=== PATIENT | female | born 1970 | race Hispanic/Latino ===

== ENCOUNTER 2018-05-21 19:37 | Emergency (ER) | payer SELFPAY ==
[~2018-05-21] VITALS: Ht 177.8 cm; Wt 93.0 kg
[2018-05-21 21:07] VITALS: BP 128/69
== END 2018-05-21 21:07 | disposition home or self-care (01) | DRG 563 ==
LOC: ED 19:37
DX: S93.402A Sprain of unspecified ligament of left ankle, initial encounter (principal); W10.9XXA Fall (on) (from) unspecified stairs and steps, initial encounter; Y92.009 Unspecified place in unspecified non-institutional (private) residence as the place of occurrence of the external cause

== ENCOUNTER 2018-10-21 06:54 | Emergency (ER) | payer OTHER ==
[~2018-10-21] VITALS: Ht 177.8 cm; Wt 102.0 kg
[2018-10-21 07:20] LABS: URINE BILIRUBIN - DIPSTICK NEGATIVE (NEGATIVE); URINE BLOOD DIPSTICK NEGATIVE (NEGATIVE); URINE COLOR YELLOW; URINE GLUCOSE - DIPSTICK NEGATIVE (NEGATIVE); URINE KETONE NEGATIVE (NEGATIVE); URINE LEUK ESTERASE NEGATIVE (NEGATIVE); URINE NITRITE - DIPSTICK NEGATIVE (Negative); URINE PH 5.5 (4.5-8.0); URINE PROTEIN - DIPSTICK NEGATIVE (NEG-TRACE); URINE UROBILINOGEN - DIPSTICK 0.2 E.U./dL (0.2)
[2018-10-21] MEDS ORDERED: NAPROXEN500 MG PO (08:28)
[2018-10-21 08:44] VITALS: BP 120/76
== END 2018-10-21 08:50 | disposition home or self-care (01) | DRG 552 ==
LOC: ED 06:54
PROVIDERS: Emergency Medicine
DX: S13.9XXA Sprain of joints and ligaments of unspecified parts of neck, initial encounter (principal); S33.5XXA Sprain of ligaments of lumbar spine, initial encounter; V40.5XXA Car driver injured in collision with pedestrian or animal in traffic accident, initial encounter

== ENCOUNTER 2019-01-03 17:26 | Emergency (ER) | payer OTHER ==
[~2019-01-03] VITALS: Ht 177.8 cm; Wt 90.0 kg
[~2019-01-03 17:26] MED LIST: NAPROXEN500 MG PO
[2019-01-03 18:47] LABS: HEMATOCRIT 33.3 % (37.0-47.0); HEMOGLOBIN 10.3 g/dl (12.0-16.0); IMMATURE GRANULOCYTES 0.4 % (0.0-5.0); MEAN CORPUSCULAR HGB 20.7 pG CALC (26.0-32.0); MEAN CORPUSCULAR HGB CONC 30.9 g/L CALC (32.0-36.0); NEUT# 7.01 thou/uL (2.00-7.15); RED BLOOD COUNT 4.97 mill/uL (4.20-5.60); RED CELL DISTRI WIDTH 14.9 % (11.5-15.5)
[2019-01-03 18:59] LABS: ALBUMIN 4.2 g/dL (3.2-5.0); ALKALINE PHOSPHATASE 78 u/l (38-126); ANION GAP 15 (6-22 (CALC)); BILIRUBIN, TOTAL 0.7 mg/dL (0.0-1.4); BUN 10 mg/dL (7-17); BUN/CREATININE RATIO 17 (12-20 (CALC)); CARBON DIOXIDE 25 mmol/l (22-30); CHLORIDE 99 mmol/l (95-108); CREATININE 0.6 mg/dL (0.5-1.0); GFR > 60 ML/MIN (>=60 (CALC)); GFR FOR AFR.AMER. > 60 ML/MIN (>=60 (CALC)); POTASSIUM 3.9 mmol/l (3.5-5.1); SGOT/AST 33 u/l (14-36); SODIUM 135 mmol/l (137-146); TOTAL PROTEIN 8.2 g/dL (6.3-8.2)
[2019-01-03 19:34] VITALS: BP 130/85
[2019-01-03] MEDS ORDERED: FLEXERIL5 M1 PO (20:33)
[2019-01-03] MEDS ORDERED: ZOFRAN4 MG/TAB PO (20:33)
[2019-01-03] MEDS ORDERED: ANTIVERT PO (20:33)
[2019-01-03] MEDS ORDERED: FIORICET PO (20:33)
== END 2019-01-03 20:45 | disposition home or self-care (01) | DRG 149 ==
LOC: ED 17:26
DX: R42 Dizziness and giddiness (principal); R51 Headache; R11.2 Nausea with vomiting, unspecified

== ENCOUNTER 2019-12-18 18:31 | Emergency (ER) | payer SELFPAY ==
[~2019-12-18] VITALS: Ht 167.6 cm; Wt 89.0 kg
[~2019-12-18 18:31] MED LIST changes: +ANTIVERT PO; +FIORICET PO; +FLEXERIL5 M1 PO; +ZOFRAN4 MG/TAB PO
[2019-12-18 20:35] LABS: HEMATOCRIT 36.9 % (37.0-47.0); HEMOGLOBIN 11.6 g/dl (12.0-16.0); IMMATURE GRANULOCYTES 0.2 % (0.0-5.0); MEAN CELL VOLUME 67.7 fL CALC (80.0-100.0); MEAN CORPUSCULAR HGB 21.3 pG CALC (26.0-32.0); MEAN CORPUSCULAR HGB CONC 31.4 g/dL CAL (32.0-36.0); NEUT# 2.7 thou/uL (2.00-7.15); RED BLOOD COUNT 5.45 mill/uL (4.20-5.60); RED CELL DISTRI WIDTH 15.3 % (11.5-15.5)
[2019-12-18 20:38] LABS: URINE BILIRUBIN - DIPSTICK NEGATIVE (NEGATIVE); URINE BLOOD DIPSTICK NEGATIVE (NEGATIVE); URINE COLOR YELLOW; URINE GLUCOSE - DIPSTICK >=1000 mg/dL (NEGATIVE); URINE KETONE >=80 mg/dL (NEGATIVE); URINE LEUK ESTERASE NEGATIVE (NEGATIVE); URINE NITRITE - DIPSTICK NEGATIVE (Negative); URINE PH 5.5 (4.5-8.0); URINE PROTEIN - DIPSTICK NEGATIVE (NEG-TRACE); URINE SPECIFIC GRAVITY 1.025; URINE UROBILINOGEN - DIPSTICK 0.2 E.U./dL (0.2)
[2019-12-18 20:53] LABS: ALBUMIN 4.2 g/dL (3.2-5.0); ALKALINE PHOSPHATASE 113 u/l (38-126); ANION GAP 14 (6-22 (CALC)); BUN 21 mg/dL (7-17); BUN/CREATININE RATIO 35 (12-20 (CALC)); CARBON DIOXIDE 23 mmol/l (22-30); CHLORIDE 101 mmol/l (95-108); CREATININE 0.6 mg/dL (0.5-1.0); GFR > 60 ML/MIN (>=60 (CALC)); GFR FOR AFR.AMER. > 60 ML/MIN (>=60 (CALC)); SGOT/AST 18 u/l (14-36); SODIUM 134 mmol/l (137-146)
[2019-12-18 21:05] LABS: MYOGLOBIN 12 ng/mL (0 - 62)
[2019-12-18 21:06] LABS: BILIRUBIN, TOTAL 0.3 mg/dL (0.0-1.4)
[2019-12-18] MEDS ORDERED: METFORMIN HCL500 M1 PO (21:44)
[2019-12-18 22:17] VITALS: BP 114/73
== END 2019-12-18 22:14 | disposition home or self-care (01) | DRG 639 ==
LOC: ED 18:31
PROVIDERS: Emergency Medicine
DX: E11.9 Type 2 diabetes mellitus without complications (principal); Z83.3 Family history of diabetes mellitus